=== PATIENT | female | born 1970 | race Two or more races ===

== ENCOUNTER 2022-11-16 19:47 | Emergency (ER) | payer OTHER ==
[~2022-11-16] VITALS: Ht 160 cm; Wt 67.1 kg
[2022-11-16] MEDS ORDERED: METF-494 PO (21:07)
[2022-11-16] MEDS ORDERED: ESCI10TA PO (21:07)
--- NOTE | 2022-11-16 21:34 | NUR ---
Dr. Mackay at bedside for MSE.
[2022-11-16] MEDS ORDERED: LIDOCAINE HCL 2% 20 ML VIAL TP ONE (21:45)
[2022-11-16] MEDS ORDERED: LIDOCAINE HCL 2% 20 ML VIAL ONE (21:50)
[2022-11-16] MEDS ORDERED: HYDR-3972 PO (22:25)
[2022-11-16 22:54] VITALS: BP 112/70
--- NOTE | 2022-11-16 22:54 | NUR ---
Patient discharged to home in stable condition. Written and verbal after care instructions given. Patient verbalizes understanding of instructions. Stressed follow up or return to ER for worsening s/s. Patient out of ER with steady gait, no acute signs of distress, VSS, all belongings taken.
== END 2022-11-16 22:55 | disposition home or self-care (01) ==
LOC: ER 20:18
DX: S61.216A Laceration without foreign body of right little finger without damage to nail, initial encounter (principal); W26.0XXA Contact with knife, initial encounter; Y93.G1 Activity, food preparation and clean up; Y92.89 Other specified places as the place of occurrence of the external cause; E88.81 Metabolic syndrome and other insulin resistance; E11.9 Type 2 diabetes mellitus without complications; Z79.84 Long term (current) use of oral hypoglycemic drugs; F32.A Depression, unspecified; Z79.899 Other long term (current) drug therapy
CPT/HCPCS: 99283; 12001; J3490; A4663